=== PATIENT | male | born 1935 | race Caucasian/White ===

== ENCOUNTER 2023-07-10 11:57 | Emergency (ER) | payer OTHER ==
[2023-07-10 12:28] VITALS: BP 110/76; PULSE 74; RESP 18; TEMP 98.7; BMI 29.2
[2023-07-10] MEDS ORDERED: ACETAMINOPHEN 500 MG TABLET (FP) PO ONE (15:19)
[2023-07-10] MEDS ORDERED: ACETAMINOPHEN 325 MG TABLET (FP) ONE (15:31)
== END 2023-07-10 17:15 | disposition home or self-care (01) ==
LOC: JER 11:57
DX: S09.90XA Unspecified injury of head, initial encounter (principal); S70.01XA Contusion of right hip, initial encounter; M79.604 Pain in right leg; M25.511 Pain in right shoulder; M25.512 Pain in left shoulder; W01.0XXA Fall on same level from slipping, tripping and stumbling without subsequent striking against object, initial encounter; W22.8XXA Striking against or struck by other objects, initial encounter; U07.1 COVID-19
CPT/HCPCS: 0241U-QW; 70450-TC; 72125-TC; 72170-TC-FY; 73030-TC-RT-FY; 73502-TC-RT-FY; 99285-25

== ENCOUNTER 2023-07-12 19:33 | Inpatient (IN) | payer OTHER ==
[2023-07-12 22:57] LABS: BASO % 0.6 % (0-2.0); EOS % 0.6 % (0-4.5); HEMATOCRIT 36.4 % (35.4-49); HEMOGLOBIN 12.5 GM/dL (11.7-16.9); LYMPH % 18.1 % (8-40); MCH 30.9 pg (25.7-33.7); MCHC 34.3 g/dl (32.0-35.9); MEAN CELL VOLUME 90.2 fl (80-96); MEAN PLT VOLUME 6.7 fl (7.5-11.1); MONO % 11.3 % (3.8-10.2); NEUT % 69.4 % (42.8-82.8); PLATELET COUNT 157 10^3/uL (134-434); RBC 4.03 M/mm3 (4.00-5.60); WHITE BLOOD COUNT 5.2 K/mm3 (4.0-10.0)
[2023-07-12 22:58] LABS: URINE APPEARANCE CLEAR; URINE BILIRUBIN NEGATIVE (NEGATIVE); URINE COLOR YELLOW; URINE GLUCOSE (UA) NEGATIVE (NEGATIVE); URINE KETONE NEGATIVE (NEGATIVE); URINE LEUK ESTERASE NEGATIVE (NEGATIVE); URINE NITRITE NEGATIVE (NEGATIVE); URINE PROTEIN NEGATIVE (NEGATIVE); URINE UROBILINOGEN 0.2 mg/dL (0.2-1.0)
[2023-07-12 23:04] LABS: INR 1.67 (0.83-1.09); PROTHROMBIN TIME (PATIENT) 19.3 SEC (9.7-13.0)
[2023-07-12 23:06] LABS: ACTIVATED PTT 31.6 SECONDS (25.2-36.5)
[2023-07-12 23:22] LABS: POTASSIUM 3.1 mmol/L (3.5-5.1)
[2023-07-12 23:26] LABS: ALBUMIN 3.3 g/dl (3.4-5.0); BLOOD UREA NITROGEN 29.4 mg/dL (7-18); CALCIUM 8.5 mg/dL (8.5-10.1); MAGNESIUM 1.8 mg/dL (1.8-2.4)
[2023-07-12 23:29] LABS: CREATININE 1.2 mg/dL (0.55-1.3); PHOSPHOROUS 3.1 mg/dL (2.5-4.9)
[2023-07-12] MEDS ORDERED: LACTATED RINGERS SOLUTION 1000 ML INFUS.BAG IV ONE (23:30)
[2023-07-12 23:31] LABS: BILIRUBIN,TOTAL 0.6 mg/dL (0.2-1); TOT PROT 5.8 g/dl (6.4-8.2)
[2023-07-12] MEDS ORDERED: POTASSIUM CHLORIDE TABS 20 MEQ TABLET.ER (FP) PO ONE (23:31)
[2023-07-12] MEDS ORDERED: ASPIRIN 81 MG CHEWABLE TABLETS PO ONE (23:41)
[2023-07-13] MEDS ORDERED: DOCUSATE SODIUM 100 MG CAPSULE (FP) PO PRN (00:39)
[2023-07-13] MEDS ORDERED: ACETAMINOPHEN 325 MG TABLET (FP) PO PRN (00:39)
[2023-07-13] MEDS ORDERED: POTASSIUM CHLORIDE TABS 20 MEQ TABLET.ER (FP) PO ONE (00:46)
[2023-07-13] MEDS ORDERED: ASPIRIN 81 MG CHEWABLE TABLETS ONE (00:46)
[2023-07-13] MEDS: SODIUM CHLORIDE 1,000 ML IV SCH (03:03)
[2023-07-13 08:31] LABS: ERYTHROCYTE SEDIMENTATION RATE 5 mm/hr (0-20)
[2023-07-13] MEDS ORDERED: SENNOSIDES 8.6MG TABLET (FP) PO ONE (09:09)
[2023-07-13] MEDS ORDERED: FAMOTIDINE 10 MG TABLET ONE (09:09)
[2023-07-13] MEDS ORDERED: MULTIVITAMINS (DAILY MVI) TABLET (FP) ONE (09:09)
[2023-07-13] MEDS ORDERED: ASPIRIN COATED 81 MG TABLET.EC ONE (09:09)
[2023-07-13] MEDS ORDERED: TAMSULOSIN HCL 0.4 MG CAP ONE (09:10)
[2023-07-13] MEDS: TAMSULOSIN HCL 0.4 MG CAP PO SCH (09:27)
[2023-07-13] MEDS: SENNOSIDES 8.6MG TABLET (FP) PO SCH (09:30)
[2023-07-13] MEDS: ASPIRIN COATED 81 MG TABLET.EC PO SCH (09:30)
[2023-07-13] MEDS: FAMOTIDINE 10 MG TABLET PO SCH ×2 (09:30→21:07)
[2023-07-13] MEDS: MULTIVITAMINS (DAILY MVI) TABLET (FP) PO SCH (09:31)
[2023-07-13] MEDS ORDERED: REMDESIVIR 200 MG in SODIUM CHLORIDE 250 ML IVPB ONE (10:00)
[2023-07-13 11:20] LABS: BASO % 0.6 % (0-2.0); EOS % 1.8 % (0-4.5); HEMATOCRIT 38.3 % (35.4-49); HEMOGLOBIN 13.2 GM/dL (11.7-16.9); LYMPH % 24.4 % (8-40); MCH 30.9 pg (25.7-33.7); MCHC 34.4 g/dl (32.0-35.9); MEAN CELL VOLUME 89.8 fl (80-96); MEAN PLT VOLUME 6.6 fl (7.5-11.1); MONO % 7.5 % (3.8-10.2); NEUT % 65.7 % (42.8-82.8); PLATELET COUNT 159 10^3/uL (134-434); RBC 4.26 M/mm3 (4.00-5.60); RDW 14.1 % (11.9-15.9); WHITE BLOOD COUNT 4.4 K/mm3 (4.0-10.0)
[2023-07-13 11:40] LABS: CALCIUM 8.6 mg/dL (8.5-10.1); POTASSIUM 3.1 mmol/L (3.5-5.1)
[2023-07-13 11:42] LABS: MAGNESIUM 1.6 mg/dL (1.8-2.4)
[2023-07-13 11:46] LABS: CREATININE 0.9 mg/dL (0.55-1.3)
[2023-07-13 11:50] LABS: N-TERMINAL BNP 1164.1 pg/ml (5-450)
[2023-07-13] MEDS ORDERED: MAGNESIUM 1GM/D5W 100ML - 100 ML IVPB IVPB ONE (13:43)
[2023-07-13] MEDS: POTASSIUM CHLORIDE TABS 20 MEQ TABLET.ER (FP) PO SCH (14:07)
[2023-07-13] MEDS: PREGABALIN 50 MG CAPSULE PO SCH (17:36)
[2023-07-13] MEDS: MAGNESIUM HYDROX 2400MG/30ML ORAL SUSPENSION 30 ML CUP PO SCH (21:07)
[2023-07-14 08:42] LABS: BASO % 0.4 % (0-2.0); EOS % 1.3 % (0-4.5); HEMATOCRIT 35.7 % (35.4-49); HEMOGLOBIN 12.6 GM/dL (11.7-16.9); LYMPH % 24.4 % (8-40); MCH 31.5 pg (25.7-33.7); MCHC 35.3 g/dl (32.0-35.9); MEAN CELL VOLUME 89.3 fl (80-96); MEAN PLT VOLUME 6.8 fl (7.5-11.1); MONO % 10.8 % (3.8-10.2); NEUT % 63.1 % (42.8-82.8); PLATELET COUNT 156 10^3/uL (134-434); RDW 13.8 % (11.9-15.9); WHITE BLOOD COUNT 4.2 K/mm3 (4.0-10.0)
[2023-07-14 08:58] LABS: POTASSIUM 3.4 mmol/L (3.5-5.1)
[2023-07-14 09:00] LABS: BLOOD UREA NITROGEN 17.6 mg/dL (7-18); CALCIUM 8.1 mg/dL (8.5-10.1)
[2023-07-14 09:04] LABS: CREATININE 0.6 mg/dL (0.55-1.3)
[2023-07-14] MEDS: ASPIRIN COATED 81 MG TABLET.EC PO SCH (09:11)
[2023-07-14] MEDS: FAMOTIDINE 10 MG TABLET PO SCH ×2 (09:11→21:26)
[2023-07-14] MEDS: MULTIVITAMINS (DAILY MVI) TABLET (FP) PO SCH (09:11)
[2023-07-14] MEDS: POTASSIUM CHLORIDE TABS 20 MEQ TABLET.ER (FP) PO SCH (09:11)
[2023-07-14] MEDS: SENNOSIDES 8.6MG TABLET (FP) PO SCH (09:11)
[2023-07-14] MEDS: TAMSULOSIN HCL 0.4 MG CAP PO SCH (09:11)
[2023-07-14] MEDS: REMDESIVIR 100 MG in SODIUM CHLORIDE 250 ML IVPB SCH (09:12)
[2023-07-14] MEDS: SODIUM CHLORIDE 1,000 ML IV SCH (13:45)
[2023-07-14] MEDS: FLUTICASONE/SALMETEROL (WIXELA) 100 MCG/50 MCG DISKUS IH SCH ×2 (13:45→21:30)
[2023-07-14 14:00] VITALS: BMI 20.9
[2023-07-14] MEDS: PREGABALIN 50 MG CAPSULE PO SCH (16:11)
[2023-07-14] MEDS: MAGNESIUM HYDROX 2400MG/30ML ORAL SUSPENSION 30 ML CUP PO SCH (20:05)
[2023-07-15] MEDS: TAMSULOSIN HCL 0.4 MG CAP PO SCH (09:30)
[2023-07-15] MEDS: REMDESIVIR 100 MG in SODIUM CHLORIDE 250 ML IVPB SCH (09:53)
[2023-07-15] MEDS: FAMOTIDINE 10 MG TABLET PO SCH ×2 (10:31→21:10)
[2023-07-15] MEDS: POTASSIUM CHLORIDE TABS 20 MEQ TABLET.ER (FP) PO SCH (10:31)
[2023-07-15] MEDS: SENNOSIDES 8.6MG TABLET (FP) PO SCH (10:31)
[2023-07-15] MEDS: ASPIRIN COATED 81 MG TABLET.EC PO SCH (10:31)
[2023-07-15] MEDS: MULTIVITAMINS (DAILY MVI) TABLET (FP) PO SCH (10:32)
[2023-07-15] MEDS: FLUTICASONE/SALMETEROL (WIXELA) 100 MCG/50 MCG DISKUS IH SCH ×2 (10:32→21:44)
[2023-07-15 14:05] LABS: POTASSIUM 3.4 mmol/L (3.5-5.1)
[2023-07-15 14:07] LABS: CALCIUM 8.1 mg/dL (8.5-10.1)
[2023-07-15 14:11] LABS: CREATININE 0.7 mg/dL (0.55-1.3)
[2023-07-15] MEDS: PREGABALIN 50 MG CAPSULE PO SCH (17:00)
[2023-07-15] MEDS: SODIUM CHLORIDE 1,000 ML IV SCH ×2 (17:14→18:27)
[2023-07-15] MEDS: MAGNESIUM HYDROX 2400MG/30ML ORAL SUSPENSION 30 ML CUP PO SCH (20:45)
[2023-07-16] MEDS: SODIUM CHLORIDE 1,000 ML IV SCH ×2 (05:57→17:40)
[2023-07-16] MEDS: TAMSULOSIN HCL 0.4 MG CAP PO SCH (08:37)
[2023-07-16 10:06] LABS: BASO % 0.3 % (0-2.0); EOS % 0.9 % (0-4.5); HEMATOCRIT 37.4 % (35.4-49); LYMPH % 19.9 % (8-40); MCH 31.2 pg (25.7-33.7); MCHC 34.8 g/dl (32.0-35.9); MEAN CELL VOLUME 89.8 fl (80-96); MEAN PLT VOLUME 6.6 fl (7.5-11.1); MONO % 8.6 % (3.8-10.2); NEUT % 70.3 % (42.8-82.8); PLATELET COUNT 158 10^3/uL (134-434); RBC 4.17 M/mm3 (4.00-5.60); RDW 13.9 % (11.9-15.9); WHITE BLOOD COUNT 4.9 K/mm3 (4.0-10.0)
[2023-07-16 10:20] LABS: POTASSIUM 3.6 mmol/L (3.5-5.1)
[2023-07-16] MEDS: MULTIVITAMINS (DAILY MVI) TABLET (FP) PO SCH (10:21)
[2023-07-16] MEDS: FAMOTIDINE 10 MG TABLET PO SCH ×2 (10:21→21:54)
[2023-07-16] MEDS: POTASSIUM CHLORIDE TABS 20 MEQ TABLET.ER (FP) PO SCH (10:21)
[2023-07-16] MEDS: ASPIRIN COATED 81 MG TABLET.EC PO SCH (10:21)
[2023-07-16] MEDS: SENNOSIDES 8.6MG TABLET (FP) PO SCH (10:21)
[2023-07-16] MEDS: FLUTICASONE/SALMETEROL (WIXELA) 100 MCG/50 MCG DISKUS IH SCH ×2 (10:23→21:54)
[2023-07-16 10:29] LABS: BLOOD UREA NITROGEN 18.8 mg/dL (7-18)
[2023-07-16 10:30] LABS: TOT PROT 5.2 g/dl (6.4-8.2)
[2023-07-16 10:33] LABS: CALCIUM 8.5 mg/dL (8.5-10.1)
[2023-07-16 10:38] LABS: CREATININE 0.7 mg/dL (0.55-1.3)
[2023-07-16 10:40] LABS: BILIRUBIN,TOTAL 0.8 mg/dL (0.2-1)
[2023-07-16] MEDS: PREGABALIN 50 MG CAPSULE PO SCH (16:06)
[2023-07-16 20:17] LABS: EPI CELLS 3 /uL (0-25.1); HYALINE CASTS 0 /uL (0-3.1); URINE APPEARANCE CLEAR; URINE BACTERIA >9,000 /uL (0-1359); URINE BILIRUBIN NEGATIVE (NEGATIVE); URINE COLOR YELLOW; URINE GLUCOSE (UA) NEGATIVE (NEGATIVE); URINE KETONE NEGATIVE (NEGATIVE); URINE LEUK ESTERASE NEGATIVE (NEGATIVE); URINE NITRITE NEGATIVE (NEGATIVE); URINE PROTEIN NEGATIVE (NEGATIVE); URINE RBC 144 /uL (0-23.9); URINE WBC 4 /uL (0-25.8)
[2023-07-16] MEDS: MAGNESIUM HYDROX 2400MG/30ML ORAL SUSPENSION 30 ML CUP PO SCH (20:22)
[2023-07-17] MEDS: SODIUM CHLORIDE 1,000 ML IV SCH (00:53)
[2023-07-17 11:06] LABS: BASO % 0.5 % (0-2.0); EOS % 0.9 % (0-4.5); HEMOGLOBIN 12.3 GM/dL (11.7-16.9); LYMPH % 16.8 % (8-40); MCH 30.4 pg (25.7-33.7); MCHC 34.1 g/dl (32.0-35.9); MEAN CELL VOLUME 89.2 fl (80-96); MEAN PLT VOLUME 6.6 fl (7.5-11.1); MONO % 8.3 % (3.8-10.2); NEUT % 73.5 % (42.8-82.8); PLATELET COUNT 172 10^3/uL (134-434); RBC 4.03 M/mm3 (4.00-5.60); RDW 14.1 % (11.9-15.9); WHITE BLOOD COUNT 5.2 K/mm3 (4.0-10.0)
[2023-07-17] MEDS: SENNOSIDES 8.6MG TABLET (FP) PO SCH (11:23)
[2023-07-17] MEDS: ASPIRIN COATED 81 MG TABLET.EC PO SCH (11:23)
[2023-07-17] MEDS: POTASSIUM CHLORIDE TABS 20 MEQ TABLET.ER (FP) PO SCH (11:23)
[2023-07-17] MEDS: FAMOTIDINE 10 MG TABLET PO SCH ×2 (11:24→21:31)
[2023-07-17] MEDS: MULTIVITAMINS (DAILY MVI) TABLET (FP) PO SCH (11:24)
[2023-07-17] MEDS: TAMSULOSIN HCL 0.4 MG CAP PO SCH (11:24)
[2023-07-17] MEDS: FLUTICASONE/SALMETEROL (WIXELA) 100 MCG/50 MCG DISKUS IH SCH ×2 (11:25→21:31)
[2023-07-17 11:30] LABS: POTASSIUM 3.9 mmol/L (3.5-5.1)
[2023-07-17 11:31] LABS: BLOOD UREA NITROGEN 17.1 mg/dL (7-18); CALCIUM 7.7 mg/dL (8.5-10.1)
[2023-07-17 11:35] LABS: CREATININE 0.6 mg/dL (0.55-1.3)
[2023-07-17] MEDS ORDERED: MAGNESIUM 1GM/D5W - 1 GM/100 ML IVPB IVPB ONE (12:34)
[2023-07-17 12:53] LABS: MAGNESIUM 1.8 mg/dL (1.8-2.4)
[2023-07-17 12:56] LABS: PHOSPHOROUS 2.6 mg/dL (2.5-4.9)
[2023-07-17] MEDS: PREGABALIN 50 MG CAPSULE PO SCH (15:25)
[2023-07-17] MEDS: MAGNESIUM HYDROX 2400MG/30ML ORAL SUSPENSION 30 ML CUP PO SCH (20:23)
[2023-07-18 07:25] LABS: BASO % 0.3 % (0-2.0); EOS % 0.8 % (0-4.5); HEMATOCRIT 35.7 % (35.4-49); HEMOGLOBIN 12.6 GM/dL (11.7-16.9); LYMPH % 15.6 % (8-40); MCH 31.1 pg (25.7-33.7); MCHC 35.3 g/dl (32.0-35.9); MEAN CELL VOLUME 88.1 fl (80-96); MEAN PLT VOLUME 6.8 fl (7.5-11.1); MONO % 8.3 % (3.8-10.2); PLATELET COUNT 168 10^3/uL (134-434); RBC 4.06 M/mm3 (4.00-5.60); RDW 13.7 % (11.9-15.9); WHITE BLOOD COUNT 6.4 K/mm3 (4.0-10.0)
[2023-07-18 08:00] LABS: POTASSIUM 3.9 mmol/L (3.5-5.1)
[2023-07-18 08:04] LABS: BLOOD UREA NITROGEN 15.7 mg/dL (7-18); CALCIUM 7.9 mg/dL (8.5-10.1)
[2023-07-18 08:07] LABS: CREATININE 0.5 mg/dL (0.55-1.3)
[2023-07-18] MEDS: TAMSULOSIN HCL 0.4 MG CAP PO SCH (09:40)
[2023-07-18] MEDS: ASPIRIN COATED 81 MG TABLET.EC PO SCH (09:40)
[2023-07-18] MEDS: POTASSIUM CHLORIDE TABS 20 MEQ TABLET.ER (FP) PO SCH (09:40)
[2023-07-18] MEDS: MULTIVITAMINS (DAILY MVI) TABLET (FP) PO SCH (09:40)
[2023-07-18] MEDS: FLUTICASONE/SALMETEROL (WIXELA) 100 MCG/50 MCG DISKUS IH SCH ×3 (09:41→21:06)
[2023-07-18] MEDS: FAMOTIDINE 10 MG TABLET PO SCH ×2 (09:41→21:02)
[2023-07-18] MEDS: SENNOSIDES 8.6MG TABLET (FP) PO SCH (09:41)
[2023-07-18] MEDS: SODIUM CHLORIDE 1,000 ML IV SCH (11:39)
[2023-07-18] MEDS ORDERED: FUROSEMIDE 40 MG TABLET (FP) PO ONE (12:57)
[2023-07-18] MEDS: PREGABALIN 50 MG CAPSULE PO SCH (16:36)
[2023-07-18] MEDS: MAGNESIUM HYDROX 2400MG/30ML ORAL SUSPENSION 30 ML CUP PO SCH (20:53)
[2023-07-19 09:06] LABS: BASO % 0.4 % (0-2.0); EOS % 0.8 % (0-4.5); HEMATOCRIT 36.2 % (35.4-49); HEMOGLOBIN 12.4 GM/dL (11.7-16.9); LYMPH % 16.1 % (8-40); MCH 30.9 pg (25.7-33.7); MCHC 34.4 g/dl (32.0-35.9); MEAN CELL VOLUME 89.8 fl (80-96); MONO % 10.4 % (3.8-10.2); NEUT % 72.3 % (42.8-82.8); PLATELET COUNT 187 10^3/uL (134-434); RBC 4.03 M/mm3 (4.00-5.60); RDW 13.5 % (11.9-15.9); WHITE BLOOD COUNT 6.3 K/mm3 (4.0-10.0)
[2023-07-19 09:23] LABS: BLOOD UREA NITROGEN 14.2 mg/dL (7-18)
[2023-07-19 09:26] LABS: CALCIUM 8.1 mg/dL (8.5-10.1); CREATININE 0.6 mg/dL (0.55-1.3)
[2023-07-19] MEDS: TAMSULOSIN HCL 0.4 MG CAP PO SCH (09:52)
[2023-07-19] MEDS: FAMOTIDINE 10 MG TABLET PO SCH ×2 (09:52→21:14)
[2023-07-19] MEDS: MULTIVITAMINS (DAILY MVI) TABLET (FP) PO SCH (09:52)
[2023-07-19] MEDS: ASPIRIN COATED 81 MG TABLET.EC PO SCH (09:52)
[2023-07-19] MEDS: POTASSIUM CHLORIDE TABS 20 MEQ TABLET.ER (FP) PO SCH (09:53)
[2023-07-19] MEDS: FLUTICASONE/SALMETEROL (WIXELA) 100 MCG/50 MCG DISKUS IH SCH ×2 (09:53→21:14)
[2023-07-19] MEDS: SODIUM CHLORIDE 1,000 ML IV SCH (09:53)
[2023-07-19] MEDS: SENNOSIDES 8.6MG TABLET (FP) PO SCH (09:53)
[2023-07-19] MEDS ORDERED: SODIUM CHLORIDE 1,000 ML IV SCH (11:15)
[2023-07-19] MEDS: SODIUM CHLORIDE 1 GM TABLET PO SCH ×2 (17:07→21:21)
[2023-07-19] MEDS: PREGABALIN 50 MG CAPSULE PO SCH (17:08)
[2023-07-19] MEDS: MAGNESIUM HYDROX 2400MG/30ML ORAL SUSPENSION 30 ML CUP PO SCH (21:11)
[2023-07-20 08:48] LABS: BASO % 0.4 % (0-2.0); EOS % 2.2 % (0-4.5); HEMATOCRIT 35.9 % (35.4-49); HEMOGLOBIN 12.1 GM/dL (11.7-16.9); MCH 30.6 pg (25.7-33.7); MCHC 33.7 g/dl (32.0-35.9); MEAN CELL VOLUME 90.9 fl (80-96); MEAN PLT VOLUME 6.9 fl (7.5-11.1); MONO % 12.4 % (3.8-10.2); PLATELET COUNT 193 10^3/uL (134-434); RBC 3.94 M/mm3 (4.00-5.60); WHITE BLOOD COUNT 6.2 K/mm3 (4.0-10.0)
[2023-07-20 09:17] LABS: CALCIUM 8.3 mg/dL (8.5-10.1)
[2023-07-20 09:19] LABS: ALBUMIN 2.9 g/dl (3.4-5.0); BLOOD UREA NITROGEN 12.9 mg/dL (7-18)
[2023-07-20 09:22] LABS: CREATININE 0.7 mg/dL (0.55-1.3)
[2023-07-20 09:23] LABS: BILIRUBIN,TOTAL 1.2 mg/dL (0.2-1); TOT PROT 5.1 g/dl (6.4-8.2)
[2023-07-20] MEDS: FAMOTIDINE 10 MG TABLET PO SCH ×2 (10:25→21:37)
[2023-07-20] MEDS: ASPIRIN COATED 81 MG TABLET.EC PO SCH (10:25)
[2023-07-20] MEDS: TAMSULOSIN HCL 0.4 MG CAP PO SCH (10:25)
[2023-07-20] MEDS: MULTIVITAMINS (DAILY MVI) TABLET (FP) PO SCH (10:25)
[2023-07-20] MEDS: POTASSIUM CHLORIDE TABS 20 MEQ TABLET.ER (FP) PO SCH (10:25)
[2023-07-20] MEDS: SENNOSIDES 8.6MG TABLET (FP) PO SCH (10:25)
[2023-07-20] MEDS: SACUBITRIL/VALSARTAN 24 MG-26 MG TABLET PO SCH ×2 (11:37→21:38)
[2023-07-20] MEDS: SODIUM CHLORIDE 1 GM TABLET PO SCH ×2 (11:37→21:38)
[2023-07-20] MEDS: FLUTICASONE/SALMETEROL (WIXELA) 100 MCG/50 MCG DISKUS IH SCH ×2 (11:38→21:36)
[2023-07-20] MEDS: MAGNESIUM HYDROX 2400MG/30ML ORAL SUSPENSION 30 ML CUP PO SCH (21:37)
[2023-07-21 08:56] LABS: BASO % 0.5 % (0-2.0); EOS % 0.8 % (0-4.5); HEMATOCRIT 38.8 % (35.4-49); HEMOGLOBIN 13.4 GM/dL (11.7-16.9); LYMPH % 12.6 % (8-40); MCH 31.3 pg (25.7-33.7); MCHC 34.5 g/dl (32.0-35.9); MEAN CELL VOLUME 90.7 fl (80-96); MEAN PLT VOLUME 6.6 fl (7.5-11.1); MONO % 8.5 % (3.8-10.2); NEUT % 77.6 % (42.8-82.8); PLATELET COUNT 210 10^3/uL (134-434); RBC 4.27 M/mm3 (4.00-5.60); RDW 13.9 % (11.9-15.9); WHITE BLOOD COUNT 6.3 K/mm3 (4.0-10.0)
[2023-07-21 09:14] LABS: BLOOD UREA NITROGEN 14.2 mg/dL (7-18); CALCIUM 8.5 mg/dL (8.5-10.1)
[2023-07-21 09:17] LABS: CREATININE 0.6 mg/dL (0.55-1.3)
[2023-07-21] MEDS ORDERED: MELATONIN 5 MG TABLETS PO PRN (10:33)
[2023-07-21] MEDS: CARVEDILOL 3.125 MG TABLET (FP) PO SCH ×2 (11:20→21:20)
[2023-07-21] MEDS: SENNOSIDES 8.6MG TABLET (FP) PO SCH (11:20)
[2023-07-21] MEDS: POTASSIUM CHLORIDE TABS 20 MEQ TABLET.ER (FP) PO SCH (11:20)
[2023-07-21] MEDS: ASPIRIN COATED 81 MG TABLET.EC PO SCH (11:20)
[2023-07-21] MEDS: SACUBITRIL/VALSARTAN 24 MG-26 MG TABLET PO SCH ×2 (11:20→21:20)
[2023-07-21] MEDS: FAMOTIDINE 10 MG TABLET PO SCH ×2 (11:20→21:20)
[2023-07-21] MEDS: SODIUM CHLORIDE 1 GM TABLET PO SCH ×2 (11:20→21:20)
[2023-07-21] MEDS: TAMSULOSIN HCL 0.4 MG CAP PO SCH (11:20)
[2023-07-21] MEDS: MULTIVITAMINS (DAILY MVI) TABLET (FP) PO SCH (11:21)
[2023-07-21] MEDS: FLUTICASONE/SALMETEROL (WIXELA) 100 MCG/50 MCG DISKUS IH SCH ×2 (13:11→21:20)
[2023-07-21] MEDS: MAGNESIUM HYDROX 2400MG/30ML ORAL SUSPENSION 30 ML CUP PO SCH (21:20)
[2023-07-22] MEDS: TAMSULOSIN HCL 0.4 MG CAP PO SCH (08:39)
[2023-07-22 09:45] LABS: POTASSIUM 4.2 mmol/L (3.5-5.1)
[2023-07-22 09:56] LABS: CALCIUM 8.6 mg/dL (8.5-10.1)
[2023-07-22 09:59] LABS: CREATININE 0.6 mg/dL (0.55-1.3)
[2023-07-22] MEDS: ASPIRIN COATED 81 MG TABLET.EC PO SCH (10:04)
[2023-07-22] MEDS: CARVEDILOL 3.125 MG TABLET (FP) PO SCH ×2 (10:04→21:22)
[2023-07-22] MEDS: SENNOSIDES 8.6MG TABLET (FP) PO SCH (10:05)
[2023-07-22] MEDS: SACUBITRIL/VALSARTAN 24 MG-26 MG TABLET PO SCH ×2 (10:05→21:22)
[2023-07-22] MEDS: MULTIVITAMINS (DAILY MVI) TABLET (FP) PO SCH (10:06)
[2023-07-22] MEDS: FAMOTIDINE 10 MG TABLET PO SCH ×2 (10:07→21:21)
[2023-07-22] MEDS: SODIUM CHLORIDE 1 GM TABLET PO SCH ×2 (10:07→21:21)
[2023-07-22] MEDS: POTASSIUM CHLORIDE TABS 20 MEQ TABLET.ER (FP) PO SCH (10:07)
[2023-07-22] MEDS: FLUTICASONE/SALMETEROL (WIXELA) 100 MCG/50 MCG DISKUS IH SCH ×2 (10:09→21:22)
[2023-07-22 10:56] LABS: MAGNESIUM 2.3 mg/dL (1.8-2.4)
[2023-07-22 11:04] LABS: N-TERMINAL BNP 2165.3 pg/ml (5-450)
[2023-07-22] MEDS ORDERED: MAGNESIUM 1GM/D5W - 1 GM/100 ML IVPB IVPB ONE (12:52)
[2023-07-22] MEDS: MAGNESIUM HYDROX 2400MG/30ML ORAL SUSPENSION 30 ML CUP PO SCH ×2 (20:47→20:48)
[2023-07-23] MEDS: FAMOTIDINE 10 MG TABLET PO SCH ×2 (09:38→21:28)
[2023-07-23] MEDS: TAMSULOSIN HCL 0.4 MG CAP PO SCH (09:38)
[2023-07-23] MEDS: SENNOSIDES 8.6MG TABLET (FP) PO SCH (09:38)
[2023-07-23] MEDS: ASPIRIN COATED 81 MG TABLET.EC PO SCH (09:38)
[2023-07-23] MEDS: SACUBITRIL/VALSARTAN 24 MG-26 MG TABLET PO SCH ×2 (09:38→21:28)
[2023-07-23] MEDS: POTASSIUM CHLORIDE TABS 20 MEQ TABLET.ER (FP) PO SCH (09:38)
[2023-07-23] MEDS: MULTIVITAMINS (DAILY MVI) TABLET (FP) PO SCH (09:38)
[2023-07-23] MEDS: SODIUM CHLORIDE 1 GM TABLET PO SCH ×2 (09:38→21:28)
[2023-07-23] MEDS: CARVEDILOL 3.125 MG TABLET (FP) PO SCH ×2 (09:38→21:28)
[2023-07-23] MEDS: FLUTICASONE/SALMETEROL (WIXELA) 100 MCG/50 MCG DISKUS IH SCH ×2 (09:39→21:28)
[2023-07-23 14:19] LABS: BASO % 0.4 % (0-2.0); EOS % 2.3 % (0-4.5); HEMATOCRIT 36.4 % (35.4-49); HEMOGLOBIN 12.4 GM/dL (11.7-16.9); LYMPH % 14.8 % (8-40); MCH 30.9 pg (25.7-33.7); MCHC 34.1 g/dl (32.0-35.9); MEAN CELL VOLUME 90.7 fl (80-96); MEAN PLT VOLUME 6.8 fl (7.5-11.1); MONO % 7.7 % (3.8-10.2); NEUT % 74.8 % (42.8-82.8); PLATELET COUNT 204 10^3/uL (134-434); RBC 4.01 M/mm3 (4.00-5.60); RDW 14.2 % (11.9-15.9)
[2023-07-23 14:36] LABS: POTASSIUM 4.6 mmol/L (3.5-5.1)
[2023-07-23 14:39] LABS: CALCIUM 8.4 mg/dL (8.5-10.1)
[2023-07-23 14:40] LABS: BLOOD UREA NITROGEN 17.5 mg/dL (7-18)
[2023-07-23 14:43] LABS: CREATININE 0.7 mg/dL (0.55-1.3)
[2023-07-23] MEDS: MAGNESIUM HYDROX 2400MG/30ML ORAL SUSPENSION 30 ML CUP PO SCH (21:28)
[2023-07-24 08:58] LABS: POTASSIUM 4.5 mmol/L (3.5-5.1)
[2023-07-24 08:59] LABS: CALCIUM 8.3 mg/dL (8.5-10.1)
[2023-07-24 09:00] LABS: BLOOD UREA NITROGEN 15.6 mg/dL (7-18)
[2023-07-24 09:03] LABS: CREATININE 0.6 mg/dL (0.55-1.3)
[2023-07-24] MEDS: ASPIRIN COATED 81 MG TABLET.EC PO SCH (09:32)
[2023-07-24] MEDS: TAMSULOSIN HCL 0.4 MG CAP PO SCH (09:33)
[2023-07-24] MEDS: FLUTICASONE/SALMETEROL (WIXELA) 100 MCG/50 MCG DISKUS IH SCH ×2 (09:33→21:14)
[2023-07-24] MEDS: SACUBITRIL/VALSARTAN 24 MG-26 MG TABLET PO SCH ×2 (09:33→21:13)
[2023-07-24] MEDS: FAMOTIDINE 10 MG TABLET PO SCH ×2 (09:33→21:13)
[2023-07-24] MEDS: CARVEDILOL 3.125 MG TABLET (FP) PO SCH ×2 (09:33→21:13)
[2023-07-24] MEDS: MULTIVITAMINS (DAILY MVI) TABLET (FP) PO SCH (09:34)
[2023-07-24] MEDS: SODIUM CHLORIDE 1 GM TABLET PO SCH ×2 (09:34→21:13)
[2023-07-24] MEDS: SENNOSIDES 8.6MG TABLET (FP) PO SCH (09:34)
[2023-07-24] MEDS: POTASSIUM CHLORIDE TABS 20 MEQ TABLET.ER (FP) PO SCH (09:34)
[2023-07-24] MEDS: MAGNESIUM HYDROX 2400MG/30ML ORAL SUSPENSION 30 ML CUP PO SCH (20:24)
[2023-07-25 08:10] LABS: POTASSIUM 4.3 mmol/L (3.5-5.1)
[2023-07-25 08:12] LABS: BLOOD UREA NITROGEN 18.3 mg/dL (7-18); CALCIUM 8.6 mg/dL (8.5-10.1)
[2023-07-25 08:15] LABS: CREATININE 0.7 mg/dL (0.55-1.3)
[2023-07-25] MEDS: SENNOSIDES 8.6MG TABLET (FP) PO SCH (09:25)
[2023-07-25] MEDS: FAMOTIDINE 10 MG TABLET PO SCH ×2 (09:25→21:40)
[2023-07-25] MEDS: SACUBITRIL/VALSARTAN 24 MG-26 MG TABLET PO SCH ×2 (09:25→21:40)
[2023-07-25] MEDS: ASPIRIN COATED 81 MG TABLET.EC PO SCH (09:26)
[2023-07-25] MEDS: TAMSULOSIN HCL 0.4 MG CAP PO SCH (09:26)
[2023-07-25] MEDS: MULTIVITAMINS (DAILY MVI) TABLET (FP) PO SCH (09:26)
[2023-07-25] MEDS: POTASSIUM CHLORIDE TABS 20 MEQ TABLET.ER (FP) PO SCH (09:26)
[2023-07-25] MEDS: FLUTICASONE/SALMETEROL (WIXELA) 100 MCG/50 MCG DISKUS IH SCH ×2 (09:27→21:44)
[2023-07-25] MEDS: SODIUM CHLORIDE 1 GM TABLET PO SCH ×2 (09:27→21:40)
[2023-07-25] MEDS: CARVEDILOL 3.125 MG TABLET (FP) PO SCH ×2 (09:27→21:40)
[2023-07-25] MEDS: ENOXAPARIN NA (PORCINE) 40 MG/0.4 ML DISP.SYRIN SQ SCH (15:42)
[2023-07-25] MEDS: MAGNESIUM HYDROX 2400MG/30ML ORAL SUSPENSION 30 ML CUP PO SCH ×2 (21:40→21:44)
[2023-07-26] MEDS ORDERED: ACETAMINOPHEN 325 MG TABLET (FP) PO PRN (09:31)
[2023-07-26] MEDS ORDERED: FAMOTIDINE 10 MG TABLET PO SCH (10:00)
[2023-07-26] MEDS ORDERED: SENNOSIDES 8.6MG TABLET (FP) PO SCH (10:00)
[2023-07-26] MEDS ORDERED: MULTIVITAMINS (DAILY MVI) TABLET (FP) PO SCH (10:00)
[2023-07-26] MEDS ORDERED: ASPIRIN COATED 81 MG TABLET.EC PO SCH (10:00)
[2023-07-26] MEDS ORDERED: POTASSIUM CHLORIDE TABS 20 MEQ TABLET.ER (FP) PO SCH ×2 (10:00→10:13)
[2023-07-26] MEDS ORDERED: ALBUTEROL SO4 2.5/IPRATROPIUM 0.5 INH SOL 3 ML VIAL.NEB. NEB PRN (10:12)
[2023-07-26] MEDS: FLUTICASONE/SALMETEROL (WIXELA) 100 MCG/50 MCG DISKUS IH SCH (10:33)
[2023-07-26] MEDS: CARVEDILOL 3.125 MG TABLET (FP) PO SCH (10:34)
[2023-07-26] MEDS: ENOXAPARIN NA (PORCINE) 40 MG/0.4 ML DISP.SYRIN SQ SCH (10:34)
[2023-07-26] MEDS: SACUBITRIL/VALSARTAN 24 MG-26 MG TABLET PO SCH (10:34)
[2023-07-26 12:28] VITALS: RESP 20
[2023-07-26] MEDS: SODIUM CHLORIDE 1 GM TABLET PO SCH (13:56)
[2023-07-26 14:58] VITALS: BP 141/79; PULSE 75; TEMP 97.7
[2023-07-26] MEDS ORDERED: MAGNESIUM HYDROX 2400MG/30ML ORAL SUSPENSION 30 ML CUP PO SCH (20:00)
[2023-07-27] MEDS ORDERED: TAMSULOSIN HCL 0.4 MG CAP PO SCH (08:30)
== END 2023-07-26 15:45 | DRG 177 ==
LOC: JER 19:33 → JERBED 23:28 → J4S 07-13 15:18 → J7W 07-26 05:59
PROVIDERS: ADMIT Internal Medicine; ATTEND Internal Medicine
PROC: XW033E5 Introduction of Remdesivir Anti-infective into Peripheral Vein, Percutaneous Approach, New Technology Group 5 (ICD-10-PCS; principal; 2023-07-12)
DX: U07.1 COVID-19 (principal); G93.41 Metabolic encephalopathy; I24.89 Other forms of acute ischemic heart disease; R45.851 Suicidal ideations; I50.40 Unspecified combined systolic (congestive) and diastolic (congestive) heart failure; E87.1 Hypo-osmolality and hyponatremia; I48.91 Unspecified atrial fibrillation; E87.6 Hypokalemia; E83.42 Hypomagnesemia; I11.0 Hypertensive heart disease with heart failure; E86.0 Dehydration
CPT/HCPCS: 0241U-QW; 36415; 70450-TC; 71045-TC-FY; 72125-TC; 80048; 80053; 80061; 81003; 82140; 82550; 82553; 82570; 82728; 83615; 83735; 83880; 83930; 83935; 84100; 84300; 84439; 84443; 84484; 85025; 85610; 85651; 85730; 86140; 87086; 87635; 93005; 93010; 93306-TC; 93970-TC; 94660; 97161-GP; 99285-25; J0248